=== PATIENT | female | born 1995 | race Asian ===

== ENCOUNTER 2018-07-31 22:49 | Emergency (ER) | payer OTHER ==
--- NOTE | 2018-07-31 23:01 | ER Report ---
History and Physical Time Seen By MD: 23:01 Hx. of Stated Complaint: Patient states she fell while skiing at 1500 and hurt her left shoulder HPI/ROS CHIEF COMPLAINT: shoulder injury HISTORY OF PRESENT ILLNESS: This is a 22 year old female. She fell while skiing. Landed on left shoulder. Has pain in proximal humerus area. Some pain in posterior shoulder as well. normal sensation in arm/hand Allergies: Coded Allergies: No Known Drug Allergies (Unverified , 07/31/18) Home Meds No Active Prescriptions or Reported Meds Reviewed Nurses Notes: Yes Constitutional Vital Sign - Last 24 Hours 07/31/18 07/31/18 07/31/18 08/01/18 22:56 22:57 23:49 00:00 Temp 97.5 Pulse 70 74 75 Resp 15 B/P (MAP) 103/62 (76) 103/62 Pulse Ox 93 97 97 O2 Delivery Room Air 08/01/18 08/01/18 00:18 00:30 Pulse 69 B/P (MAP) 105/70 (82) 104/76 (85) Pulse Ox 94 Physical Exam General: Alert, no distress Musculoskeletal: Some pain over scapula and over anterior shoulder and AC joint. Minimal in proximal humerus. No pain with palpation of the rest of the arm. Pain with forward flexion and internal rotation. Positive Neer and Rosen signs. Neuro: Normal strength and sensation. Skin: No breakdown. Cardio: Normal cap refill and pulses. Medical Decision Making EKG/Imaging Imaging Exam type: SHOULDER MIN 3 VIEWS LEFT History: fall skiing, anterior shoulder pain Comparison: None. Findings: There is no acute fracture or dislocation of left shoulder. The AC joint measures 5 mm which is within range of normal but a subtle grade 1 AC separation cannot be excluded without weightbearing views and comparison with the other side. Please correlate with site of pain. Left lung apex is unremarkable. IMPRESSION: 1. No acute fracture or dislocation of left shoulder. 2. The left AC joint measures 5 mm which is within normal range. If there is concern for a grade 1 AC separation, recommend weightbearing views with comparison views of the right AC joint. Report Dictated By: Farhan Bell MD at 07/31/2018 11:37 PM ED Course/Re-evaluation ED Course Negative shoulder x-rays. Discussed this and suspect rotator cuff problem. Decision to Disposition Date: Aug 01, 2018 Decision to Disposition Time: 00:45 Depart Departure Latest Vital Signs Vital Signs Date Time Temp Pulse Resp B/P (MAP) Pulse Ox O2 Delivery O2 Flow Rate FiO2 08/01/18 00:30 69 104/76 (85) 94 07/31/18 22:57 97.5 15 Room Air Impression: Primary Impression: Shoulder strain Condition: Improved Disposition: HOME OR SELF-CARE New Scripts No Active Prescriptions or Reported Meds Patient Instructions: Shoulder Sprain (ED) Additional Instructions: Ibuprofen 200mg over the counter tablets, take 4 tablets three times a day with food. Apply ice 20 minutes every 1-2 hours while awake. Sling to rest the shoulder for the next 2 days, then begin gentle range of motion exercises If not improving over the next 1-2 weeks, please follow-up with orthopedic surgery for further evaluation Problem Qualifiers Primary Impression: Shoulder strain Encounter type: initial encounter Laterality: left Qualified Codes: S46.912A - Strain of unspecified muscle, fascia and tendon at shoulder and upper arm level, left arm, initial encounter KAREN MASSEY MD Jul 31, 2018 23:01
--- NOTE | 2018-07-31 23:47 | RADIOLOGY IMAGING REPORT ---
[place] [facility] [place] Michael Pandey : 01/05/1996 MR: [id number] V: [id number] EXAM DATE: ORDERING PHYSICIAN: KAREN MASSEY TECHNOLOGIST: Location: [facility] - [place] Patient: Michael Pandey : 01/05/1996 Visit/Account:[id number] Date of Sevice: 07/31/2018 Exam type: SHOULDER MIN 3 VIEWS LEFT History: fall skiing, anterior shoulder pain Comparison: None. Findings: There is no acute fracture or dislocation of left shoulder. The AC joint measures 5 mm which is with in range of normal but a subtle grade 1 AC separation cannot be excluded without weightbearing views and comparison with the other side. Please correlate with site of pain. Left lung apex is unremarkabl e. IMPRESSION: 1. No acute fracture or dislocation of left shoulder. 2. The left AC joint measures 5 mm which is within normal range. If there is concern for a grade 1 AC separation, recommend weightbearing views with comparison views of the right AC joint. Report Dictated By: Farhan Bell MD at 07/31/2018 11:37 PM Report E-Signed By: Farhan Bell MD at 07/31/2018 11:43 PM [id number]
[2018-08-01 00:30] VITALS: BP 104/76
== END 2018-08-01 00:56 | disposition home or self-care (01) ==
LOC: ER 23:10 → EDBD 23:10 → ER 08-01 00:56
DX: S46.912A Strain of unspecified muscle, fascia and tendon at shoulder and upper arm level, left arm, initial encounter (principal)
CPT/HCPCS: 73030; 99283; A4565